=== PATIENT | male | born 1995 | race African-American/Black ===

== ENCOUNTER 2024-01-03 06:22 | Emergency (ER) | payer SELFPAY ==
[~2024-01-03] VITALS: Ht 172.7 cm; Wt 91.0 kg
[2024-01-03 07:24] VITALS: BP 126/71; PULSE 95; RESP 22; TEMP 98.9; O2SAT 97
[2024-01-03] MEDS ORDERED: IBUP-1456 PO (07:34)
[2024-01-03] MEDS ORDERED: BACDST PO (07:34)
[2024-01-03] MEDS: IBUPROFEN 800 MG TAB PO ONE (07:39)
[2024-01-03] MEDS: cefTRIAXone SOD 1,000 MG VL IM ONE (07:39)
== END 2024-01-03 07:44 | disposition home or self-care (01) ==
LOC: ER 06:22
DX: L03.012 Cellulitis of left finger (principal); F17.210 Nicotine dependence, cigarettes, uncomplicated; F10.90 Alcohol use, unspecified, uncomplicated; F15.90 Other stimulant use, unspecified, uncomplicated; Z79.1 Long term (current) use of non-steroidal anti-inflammatories (NSAID); Z79.899 Other long term (current) drug therapy; Y90.0 Blood alcohol level of less than 20 mg/100 ml
CPT/HCPCS: 10140; 96372; 99284; J0696

== ENCOUNTER 2024-12-09 18:58 | Emergency (ER) | payer SELFPAY ==
[~2024-12-09] VITALS: Ht 170.2 cm; Wt 82.0 kg
[2024-12-09 18:58] VITALS: BP 123/74; PULSE 69; RESP 18; TEMP 97.9; O2SAT 98
[~2024-12-09 18:58] MED LIST: BACDST PO; IBUP-1456 PO
== END 2024-12-09 20:32 | disposition left against medical advice (07) ==
LOC: ER 18:58
DX: H92.01 Otalgia, right ear (principal); Z53.21 Procedure and treatment not carried out due to patient leaving prior to being seen by health care provider